=== PATIENT | female | born 1990 | race Caucasian/White ===

== ENCOUNTER 2017-03-05 11:02 | Emergency (ER) | payer BC, MEDICAID ==
[~2017-03-05] VITALS: Ht 162.6 cm; Wt 60.8 kg
[2017-03-05] MEDS ORDERED: ACETAMINOPHEN/CODEINE#3 (300/30mg) TAB PO ONE (12:00)
[2017-03-05 12:04] VITALS: BP 116/60
== END 2017-03-05 12:04 | disposition home or self-care (01) ==
LOC: ER 11:08
DX: K04.7 Periapical abscess without sinus (principal); R51 Headache; Z88.1 Allergy status to other antibiotic agents; Z88.8 Allergy status to other drugs, medicaments and biological substances

== ENCOUNTER → 2017-03-30 | Outpatient (CLI) | payer BC ==
[2017-03-30 11:46] LABS: Basophils # (auto) 0.1 uL; Eosinophils # (auto) 0.4 uL; Eosinophils % (auto) 5.6 % (0.0-7.0); Hematocrit 42.7 % (36.0-46.0); Hemoglobin 14.4 g/dL (12.2-16.2); Lymphocytes # (auto) 2.7 uL; Lymphocytes % (auto) 39.3 % (10.0-50.0); Mean Corpuscular Hemoglobin 29.3 pg (28.0-32.0); Mean Corpuscular Hgb Conc. 33.6 g/dL (32.0-36.0); Mean Corpuscular Volume 86.9 fL (80.0-100.0); Mean Platelet Volume 9.1 fL (7.4-10.4); Monocytes # (auto) 0.6 uL; Neutrophils % (auto) 44.1 % (37.0-80.0); Platelet Count (auto) 284 10^3/uL (140-450); Red Cell Distribution Width 13.4 % (11.6-16.0); White Blood Cell 6.8 10^3/uL (4.4-10.8)
== END | disposition home or self-care (01) ==
LOC: LAB 11:24
PROVIDERS: ATTEND Obstetrics & Gynecology
DX: N92.6 Irregular menstruation, unspecified (principal)
CPT/HCPCS: 36415; 84443; 85025

== ENCOUNTER 2017-04-14 16:06 | Emergency (ER) | payer BC, MEDICAID ==
[~2017-04-14] VITALS: Ht 162.6 cm; Wt 61.2 kg
[2017-04-14 16:40] VITALS: BP 115/66
== END 2017-04-14 21:01 | disposition left against medical advice (07) ==
LOC: ER 16:15
DX: T78.40XA Allergy, unspecified, initial encounter (principal); Z53.21 Procedure and treatment not carried out due to patient leaving prior to being seen by health care provider

== ENCOUNTER → 2017-04-27 | Outpatient (CLI) | payer BC, MEDICAID ==
[2017-04-28 09:01] LABS: Basophils # (auto) 0 uL; Basophils % (auto) 0.4 % (0.0-2.0); CONDITION Y; Eosinophils # (auto) 0.4 uL; Eosinophils % (auto) 3.5 % (0.0-7.0); Hematocrit 43.3 % (36.0-46.0); Hemoglobin 14.7 g/dL (12.2-16.2); Lymphocytes # (auto) 2.4 uL; Lymphocytes % (auto) 22.7 % (10.0-50.0); Mean Corpuscular Hemoglobin 29.7 pg (28.0-32.0); Mean Corpuscular Volume 87.3 fL (80.0-100.0); Mean Platelet Volume 9.7 fL (7.4-10.4); Monocytes # (auto) 0.6 uL; Monocytes % (auto) 5.9 % (0.0-12.0); Neutrophils # (auto) 7.1 uL; Neutrophils % (auto) 67.5 % (37.0-80.0); Platelet Count (auto) 287 10^3/uL (140-450); Red Cell Distribution Width 13.9 % (11.6-16.0); White Blood Cell 10.5 10^3/uL (4.4-10.8)
== END | disposition home or self-care (01) ==
LOC: LAB 15:52
PROVIDERS: ATTEND Internal Medicine Cardiovascular Disease
DX: D64.9 Anemia, unspecified (principal); B27.90 Infectious mononucleosis, unspecified without complication; R07.0 Pain in throat
CPT/HCPCS: 36415; 85025; 86308; 87070

== ENCOUNTER → 2017-08-27 | Outpatient (CLI) | payer BC, MEDICAID ==
[2017-08-27 09:42] LABS: Basophils # (auto) 0.1 uL; Basophils % (auto) 0.9 % (0.0-2.0); Eosinophils # (auto) 0.3 uL; Hematocrit 41.5 % (36.0-46.0); Lymphocytes # (auto) 2.7 uL; Lymphocytes % (auto) 42.5 % (10.0-50.0); Mean Corpuscular Hemoglobin 29.7 pg (28.0-32.0); Mean Corpuscular Hgb Conc. 33.7 g/dL (32.0-36.0); Mean Platelet Volume 8.9 fL (6.9-10.8); Monocytes # (auto) 0.4 uL; Monocytes % (auto) 5.9 % (0.0-12.0); Neutrophils % (auto) 46.7 % (37.0-80.0); Nucleated Red Blood Cells % 0.1 %; Platelet Count (auto) 337 10^3/uL (140-450); Red Cell Distribution Width 13.1 % (11.8-14.3); White Blood Cell 6.5 10^3/uL (4.4-10.8)
== END | disposition home or self-care (01) ==
LOC: LAB 09:15
PROVIDERS: ATTEND Internal Medicine Cardiovascular Disease
DX: R79.89 Other specified abnormal findings of blood chemistry (principal)
CPT/HCPCS: 36415; 85025

== ENCOUNTER → 2017-09-09 | Outpatient (CLI) | payer BC, MEDICAID ==
[2017-09-09 10:00] LABS: Cholesterol 174 mg/dL (< 200); HDL Cholesterol 55 mg/dL (40-59); LDL Cholesterol 110 mg/dL (< 100); Triglycerides 133 mg/dL (< 150)
== END | disposition home or self-care (01) ==
LOC: LAB 08:40
PROVIDERS: ATTEND Specialist
DX: N92.6 Irregular menstruation, unspecified (principal); R79.89 Other specified abnormal findings of blood chemistry
CPT/HCPCS: 36415; 80061; 83525; 84146; 84403

== ENCOUNTER 2017-10-15 08:04 | Day surgery (SDC) | payer BC, MEDICAID ==
[2017-10-12 12:37] LABS: Basophils # (auto) 0.1 uL; Basophils % (auto) 0.8 % (0.0-2.0); Eosinophils # (auto) 0.1 uL; Eosinophils % (auto) 2.1 % (0.0-7.0); Hematocrit 28.3 % (36.0-46.0); Hemoglobin 9.2 g/dL (12.2-16.2); Lymphocytes # (auto) 2.3 uL; Lymphocytes % (auto) 33.7 % (10.0-50.0); Mean Corpuscular Hemoglobin 27.1 pg (28.0-32.0); Mean Corpuscular Hgb Conc. 32.3 g/dL (32.0-36.0); Mean Corpuscular Volume 83.8 fL (80.0-100.0); Mean Platelet Volume 8.7 fL (6.9-10.8); Monocytes # (auto) 0.4 uL; Monocytes % (auto) 6.3 % (0.0-12.0); Neutrophils # (auto) 3.9 uL; Neutrophils % (auto) 57.1 % (37.0-80.0); Platelet Count (auto) 291 10^3/uL (140-450); White Blood Cell 6.8 10^3/uL (4.4-10.8)
[2017-10-12 12:43] LABS: Urine Bilirubin Negative (Negative); Urine Blood 3+ /uL (Negative); Urine Glucose Normal (Normal); Urine Ketone Negative (Negative); Urine Nitrite Negative (Negative); Urine Urobilinogen Normal (Negative); Urine pH 5.5 (5.0-8.0)
[2017-10-12 12:46] LABS: Urine Color Yellow (Yellow)
[2017-10-12 12:49] LABS: INR 0.96 (0.9-1.15); Partial Thromboplastin Time 25.5 sec (22.64-33.71); Prothrombin Time 10.5 sec (9.37-12.3)
[2017-10-12 12:59] LABS: Albumin 3.7 g/dL (3.4-5.0); BUN/Creatinine Ratio 23.1; Bilirubin, Total 0.3 mg/dL (0.2-1.0); Calcium 8.5 mg/dL (8.5-10.1); Potassium 3.9 mmol/L (3.5-5.1); Total Protein 7.4 g/dL (6.4-8.2)
[~2017-10-15] VITALS: Ht 162.6 cm; Wt 60.8 kg
[~2017-10-15 08:04] MED LIST: IBUP800T24 PO
[2017-10-15] MEDS ORDERED: PROPOFOL 10 MG/ML 20 ML IV ONE (10:28)
[2017-10-15] MEDS ORDERED: MIDAZOLAM HCL 1MG/1ML-2 ML VIAL ONE (10:28)
[2017-10-15] MEDS ORDERED: ceFAZolin 1GM/50ML 50 ML IV ONE (11:16)
[2017-10-15] MEDS ORDERED: ONDANSETRON HCL 4 MG/2 ML VIAL ONE (11:18)
[2017-10-15] MEDS ORDERED: METOCLOPRAMIDE HCL 5MG/ml INJ 2ml VIAL ONE (11:18)
[2017-10-15] MEDS ORDERED: KETOROLAC TROMETH 30 MG/ML 1ML VIAL ONE (11:18)
[2017-10-15] MEDS ORDERED: fentaNYL CITRATE 100 MCG/2 ML VL ONE (11:25)
[2017-10-15] MEDS ORDERED: LIDOCAINE HCL 2% TOP JELLY 5ML TOP ONE (11:28)
[2017-10-15] MEDS ORDERED: SILVER NITRATE-POTAS NITRA STICK TOP ONE (11:58)
[2017-10-15] MEDS ORDERED: ONDANSETRON HCL 4 MG/2 ML VIAL IV ONE (12:00)
[2017-10-15] MEDS ORDERED: MORPHINE SULF INJ 2 MG/ML SYRINGE 1ML IV PRN (12:00)
[2017-10-15] MEDS ORDERED: LACTATED RINGER'S 1,000 ML IV SCH (12:17)
[2017-10-15] MEDS ORDERED: ONDANSETRON HCL 4 MG/2 ML VIAL IV PRN (12:30)
[2017-10-15 13:22] VITALS: BP 108/60
== END 2017-10-15 13:31 | disposition home or self-care (01) ==
LOC: SUR 08:04
PROVIDERS: ATTEND Specialist
DX: N93.8 Other specified abnormal uterine and vaginal bleeding (principal); E28.2 Polycystic ovarian syndrome; D64.9 Anemia, unspecified; F32.9 Major depressive disorder, single episode, unspecified; G43.909 Migraine, unspecified, not intractable, without status migrainosus; Z88.0 Allergy status to penicillin; Z88.5 Allergy status to narcotic agent; Z88.1 Allergy status to other antibiotic agents; D69.6 Thrombocytopenia, unspecified; F41.9 Anxiety disorder, unspecified
CPT/HCPCS: 36415; 58558; 80053; 81003; 84702; 85025; 85610; 85730; 86850; 86900; 86901; J0690; J1885; J2250; J2405; J2704; J2765; J3010

== ENCOUNTER → 2018-05-09 | Outpatient (CLI) | payer BC, MEDICAID ==
[2018-05-09 09:12] LABS: Basophils # (auto) 0 uL; Basophils % (auto) 0.4 % (0.0-2.0); Mean Corpuscular Hgb Conc. 32.4 g/dL (32.0-36.0); Monocytes # (auto) 0.4 uL; Neutrophils # (auto) 3.7 uL; Platelet Count (auto) 286 10^3/uL (140-450)
[2018-05-09 09:15] LABS: Eosinophils # (auto) 0.1 uL; Eosinophils % (auto) 2.4 % (0.0-7.0); Hematocrit 41.6 % (36.0-46.0); Hemoglobin 13.5 g/dL (12.2-16.2); Lymphocytes # (auto) 1.9 uL; Lymphocytes % (auto) 30.5 % (10.0-50.0); Mean Corpuscular Hemoglobin 26.1 pg (28.0-32.0); Mean Corpuscular Volume 80.5 fL (80.0-100.0); Monocytes % (auto) 6.4 % (0.0-12.0); Neutrophils % (auto) 60.3 % (37.0-80.0); Red Blood Cells 5.16 10^6/uL (4.0-5.20); Red Cell Distribution Width 17.2 % (11.8-14.3); White Blood Cell 6.2 10^3/uL (4.4-10.8)
[2018-05-09 10:01] LABS: BUN/Creatinine Ratio 15.6; Bilirubin, Total 0.5 mg/dL (0.2-1.0); Potassium 3.9 mmol/L (3.5-5.1); Total Protein 7.9 g/dL (6.4-8.2)
== END | disposition home or self-care (01) ==
LOC: LAB 08:46
PROVIDERS: ATTEND Internal Medicine
DX: D64.9 Anemia, unspecified (principal); I10 Essential (primary) hypertension; E11.9 Type 2 diabetes mellitus without complications; F41.9 Anxiety disorder, unspecified; F32.9 Major depressive disorder, single episode, unspecified; E03.9 Hypothyroidism, unspecified
CPT/HCPCS: 36415; 80053; 82607; 83540; 85025

== ENCOUNTER 2018-12-08 10:50 | Emergency (ER) | payer BC, MEDICAID ==
[~2018-12-08] VITALS: Ht 162.6 cm; Wt 56.7 kg
[2018-12-08 12:12] VITALS: BP 126/65
== END 2018-12-08 12:42 | disposition home or self-care (01) ==
LOC: ER 10:50
DX: G43.909 Migraine, unspecified, not intractable, without status migrainosus (principal)
CPT/HCPCS: 70450

== ENCOUNTER → 2019-01-09 | Outpatient (CLI) | payer BC, MEDICAID ==
[2019-01-09 13:32] LABS: Cholesterol 189 mg/dL (< 200); HDL Cholesterol 50 mg/dL (40-59); LDL Cholesterol 110 mg/dL (< 100); Triglycerides 195 mg/dL (< 150)
[2019-01-09 14:33] LABS: Prolactin 10.86 ng/mL (2.8-29.2)
[2019-01-09 14:40] LABS: Follicle Stimulating Hormone 4.96 IU/L (SEE BELOW); Leuteinizing Hormone 21.4 IU/L
== END | disposition home or self-care (01) ==
LOC: LAB 12:18
PROVIDERS: ATTEND Specialist
DX: E28.2 Polycystic ovarian syndrome (principal)
CPT/HCPCS: 36415; 80061; 83001; 83002; 83036; 84146; 84403; 84443

== ENCOUNTER → 2019-06-26 | Outpatient (CLI) | payer BC, MEDICAID ==
[2019-06-26 16:00] LABS: Basophils # (auto) 0 uL; Basophils % (auto) 0.4 % (0.0-2.0); Eosinophils # (auto) 0.3 uL; Eosinophils % (auto) 5.2 % (0.0-7.0); Hematocrit 42.9 % (36.0-46.0); Hemoglobin 14.4 g/dL (12.2-16.2); Lymphocytes # (auto) 1.9 uL; Lymphocytes % (auto) 35.9 % (10.0-50.0); Mean Corpuscular Hemoglobin 30.2 pg (28.0-32.0); Mean Corpuscular Hgb Conc. 33.6 g/dL (32.0-36.0); Mean Corpuscular Volume 89.9 fL (80.0-100.0); Monocytes # (auto) 0.5 uL; Monocytes % (auto) 9.4 % (0.0-12.0); Neutrophils # (auto) 2.6 uL; Neutrophils % (auto) 49.1 % (37.0-80.0); Nucleated Red Blood Cells % 0.1 %; Platelet Count (auto) 254 10^3/uL (140-450); Red Blood Cells 4.78 10^6/uL (4.0-5.20); Red Cell Distribution Width 13.2 % (11.8-14.3); White Blood Cell 5.2 10^3/uL (4.4-10.8)
[2019-06-26 16:13] LABS: Albumin 3.6 g/dL (3.4-5.0); Calcium 8.4 mg/dL (8.5-10.1); Potassium 3.7 mmol/L (3.5-5.1)
[2019-06-26 16:17] LABS: BUN/Creatinine Ratio 14.8; Bilirubin, Total 0.5 mg/dL (0.2-1.0); Total Protein 7.5 g/dL (6.4-8.2)
== END | disposition home or self-care (01) ==
LOC: LAB 15:47
PROVIDERS: ATTEND Internal Medicine
DX: E03.9 Hypothyroidism, unspecified (principal); K21.9 Gastro-esophageal reflux disease without esophagitis
CPT/HCPCS: 36415; 80053; 84439; 84443; 85025

== ENCOUNTER 2020-05-17 15:52 | Emergency (ER) | payer BC, MEDICAID ==
[~2020-05-17] VITALS: Ht 162.6 cm; Wt 65.8 kg
[2020-05-17 16:38] VITALS: BP 148/71
[2020-05-17] MEDS ORDERED: KETOROLAC TROMETH 60MG/2ML VIAL IM ONE (16:45)
== END 2020-05-17 17:36 | disposition home or self-care (01) ==
LOC: ER 15:52
DX: G44.209 Tension-type headache, unspecified, not intractable (principal)
CPT/HCPCS: 70450; 81002; 81025; 96372; 99284; J1885

== ENCOUNTER → 2020-05-20 | Outpatient (CLI) | payer OTHER ==
[~2020-05-20] MED LIST changes: +ALBUAER3 IN; +ASCO500T11 PO; +CYA100I PO; +OMEP20TA PO; +ZINC220C8 PO
== END | disposition home or self-care (01) ==
LOC: LAB 15:15
PROVIDERS: ATTEND Physician Assistant
DX: Z03.818 Encounter for observation for suspected exposure to other biological agents ruled out (principal)
CPT/HCPCS: 87635

== ENCOUNTER 2020-06-01 13:32 | Emergency (ER) | payer MEDICAID, OTHER ==
[~2020-06-01] VITALS: Ht 162.6 cm; Wt 65.8 kg
[~2020-06-01 13:32] MED LIST changes: -ALBUAER3 IN; -ASCO500T11 PO; -CYA100I PO; -OMEP20TA PO; -ZINC220C8 PO
[2020-06-01 16:05] VITALS: BP 145/77
== END 2020-06-01 16:08 | disposition home or self-care (01) ==
LOC: EEVIPCON 13:32 → ER 13:32
DX: U07.1 COVID-19 (principal); J06.9 Acute upper respiratory infection, unspecified
CPT/HCPCS: 71045; 99284; U0003

== ENCOUNTER 2020-06-20 14:24 | Inpatient (IN) | payer MEDICAID ==
[~2020-06-20] VITALS: Ht 162.6 cm; Wt 66.1 kg
[2020-06-20] MEDS ORDERED: methylPREDNISolone SOD SUCC 125 MG/2 ML VL IV ONE (14:30)
[2020-06-20] MEDS ORDERED: AZITHROMYCIN 500MG/ 250ML 250 ML IV ONE (14:45)
[2020-06-20] MEDS ORDERED: SODIUM CHLORIDE 0.9% 1,000 ML IV SCH (15:25)
[2020-06-20] MEDS ORDERED: ACETAMINOPHEN 500 MG TAB PO PRN (15:30)
[2020-06-20] MEDS ORDERED: NITROGLYCERIN 0.4 MG SL TAB SL PRN (15:30)
[2020-06-20] MEDS ORDERED: MORPHINE SULF INJ 2 MG/ML SYRINGE 1ML IV PRN (15:30)
[2020-06-20 15:57] LABS: Basophils # (auto) 0 10 ^3/uL (0-0.2); Basophils % (auto) 0.5 % (0.0-2.0); Eosinophils # (auto) 0.2 10 ^3/uL (0-0.8); Eosinophils % (auto) 2.7 % (0.0-7.0); Hemoglobin 14.8 g/dL (12.2-16.2); Lymphocytes # (auto) 2.1 10 ^3/uL (0.4-5.4); Lymphocytes % (auto) 29.3 % (10.0-50.0); Mean Corpuscular Hemoglobin 29.4 pg (28.0-32.0); Mean Corpuscular Hgb Conc. 32.9 g/dL (32.0-36.0); Mean Corpuscular Volume 89.2 fL (80.0-100.0); Monocytes # (auto) 0.6 10 ^3/uL (0-1.3); Monocytes % (auto) 8.3 % (0.0-12.0); Neutrophils # (auto) 4.3 10 ^3/uL (1.6-8.6); Neutrophils % (auto) 59.2 % (37.0-80.0); Platelet Count (auto) 288 10^3/uL (140-450); Red Blood Cells 5.04 10^6/uL (4.0-5.20); Red Cell Distribution Width 12.7 % (11.8-14.3); White Blood Cell 7.2 10^3/uL (4.4-10.8)
[2020-06-20 16:13] LABS: Albumin 3.9 g/dL (3.4-5.0); Calcium 8.9 mg/dL (8.5-10.1); Potassium 3.7 mmol/L (3.5-5.1)
[2020-06-20 16:17] LABS: BUN/Creatinine Ratio 12.9; Bilirubin, Total 0.4 mg/dL (0.2-1.0); CRP High Sensitivity 0.3 mg/dL (< 0.3); Total Protein 7.6 g/dL (6.4-8.2)
[2020-06-20 17:00] VITALS: BP 122/76
[2020-06-20] MEDS ORDERED: ASCO500T11 PO (18:22)
[2020-06-20] MEDS ORDERED: CYA100I PO (18:22)
[2020-06-20] MEDS ORDERED: ZINC220C8 PO (18:23)
[2020-06-20 20:46] VITALS: BP 122/76
--- NOTE | 2020-06-20 20:52 | NUR ---
In House Covid-19 Swab In house covid-19 swab collected and walked to lab by charge nurse Ashlee.
[2020-06-20] MEDS: DOXYCYCLINE 100 MG TAB/CAP PO SCH (21:10)
[2020-06-20] MEDS: BUDESONIDE (INHALATION) 180 MCG IH IN SCH (21:55)
[2020-06-20] MEDS: ALBUTEROL SULF HFA 90MCG INH 200DOSE IN SCH (21:56)
[2020-06-20 22:00] VITALS: BP 121/69
[2020-06-20] MEDS ORDERED: ALBUTEROL SULF HFA 90MCG INH 200DOSE IN SCH (22:00)
--- NOTE | 2020-06-21 01:00 | NUR ---
Covid Test Result Notified by [employer]er Elda that patient's covid-19 test resulted negative.
--- NOTE | 2020-06-21 01:15 | NUR ---
Report Given Report given to Rocael BAUER.
--- NOTE | 2020-06-21 01:30 | NUR ---
Patient Transferred from [facility]- Unit Patient transferred to room 209 via wheelchair with all personal belongings accompanied by Rocael BAUER. No sign/symptoms of distress noted upon departure. Patient care endorsed to Rocael BAUER.
[2020-06-21 01:40] VITALS: BP 120/64
--- NOTE | 2020-06-21 01:40 | NUR ---
Patient transferred to room 209. Patient taken from COVID Unit on [facility] to room 209 via wheelchair with belongings. No signs of distress or SOB noted. Bed is in lowest position and locked. Call light within reach. Board updated. Vitals: Temp: 09.0, HR: 94, RR: 18, O@ saturation: 97% on RA, BP: 120/84. Will continue to assess hourly and as needed.
--- NOTE | 2020-06-21 02:37 | NUR ---
Spoke to BRINDA Qureshi and relayed to him that patient is feeling very anxious about her current health situation and cannot sleep either. Order received: Temazepam 15 mg PO Once. Order repeated, verified, and placed.
[2020-06-21] MEDS ORDERED: TEMAZEPAM 15 MG CAP PO ONE (02:45)
[2020-06-21 05:00] VITALS: BP 103/63
[2020-06-21] MEDS: ALBUTEROL SULF HFA 90MCG INH 200DOSE IN SCH ×2 (05:50→15:57)
[2020-06-21 07:50] LABS: Basophils # (auto) 0 10 ^3/uL (0-0.2); Basophils % (auto) 0.1 % (0.0-2.0); Eosinophils # (auto) 0 10 ^3/uL (0-0.8); Hematocrit 45.8 % (36.0-46.0); Hemoglobin 15.2 g/dL (12.2-16.2); Lymphocytes # (auto) 1.1 10 ^3/uL (0.4-5.4); Mean Corpuscular Hemoglobin 29.5 pg (28.0-32.0); Mean Corpuscular Hgb Conc. 33.3 g/dL (32.0-36.0); Mean Corpuscular Volume 88.8 fL (80.0-100.0); Monocytes # (auto) 0.1 10 ^3/uL (0-1.3); Monocytes % (auto) 1.2 % (0.0-12.0); Neutrophils # (auto) 7.7 10 ^3/uL (1.6-8.6); Neutrophils % (auto) 86.7 % (37.0-80.0); Platelet Count (auto) 305 10^3/uL (140-450); Red Blood Cells 5.16 10^6/uL (4.0-5.20); Red Cell Distribution Width 12.9 % (11.8-14.3); White Blood Cell 8.8 10^3/uL (4.4-10.8)
[2020-06-21 08:11] LABS: Albumin 4.1 g/dL (3.4-5.0); Calcium 9.1 mg/dL (8.5-10.1); Potassium 4.1 mmol/L (3.5-5.1)
[2020-06-21 08:15] LABS: BUN/Creatinine Ratio 7.7; Bilirubin, Total 0.3 mg/dL (0.2-1.0); Total Protein 8.2 g/dL (6.4-8.2)
--- NOTE | 2020-06-21 08:15 | NUR ---
Respiratory note: Albuterol and Pulmicort MDI's were administered by RT at this time as ordered. HR 81, RR 20, SPO2 99% on room air. Unable to document on EMAR, due to Albuterol MDI was documented NON-ADMINISTERED on EMAR by noc shift RN, unable to contact RN to undo documentation, RN already went home. Pt tolerated treatment well, no adverse reactions noted. Will continue as ordered.
[2020-06-21] MEDS: BUDESONIDE (INHALATION) 180 MCG IH IN SCH (08:17)
[2020-06-21] MEDS: DOXYCYCLINE 100 MG TAB/CAP PO SCH (08:58)
[2020-06-21 09:00] VITALS: BP 116/71
[2020-06-21] MEDS ORDERED: CHOLECALCIFEROL (VITD3) 2,000 UNIT CAP PO SCH (10:00)
[2020-06-21] MEDS ORDERED: ASCORBIC ACID 1,000 MG TAB PO SCH (10:00)
[2020-06-21] MEDS ORDERED: ZINC SULFATE 220mg CAP or TAB PO SCH (10:00)
[2020-06-21] MEDS ORDERED: ENOXAPARIN SOD 40 MG/0.4 ML SYRINGE SC SCH (10:00)
[2020-06-21 13:00] VITALS: BP 110/69
[2020-06-21] MEDS ORDERED: SODIUM CHLORIDE 0.9% 1,000 ML IV SCH (13:15)
[2020-06-21] MEDS ORDERED: ALBUAER3 IN (15:49)
[2020-06-21] MEDS ORDERED: OMEP20TA PO (15:52)
[2020-06-21] MEDS ORDERED: IOHEXOL 300 MG/ML 100ML BOTTLE IJ ONE (16:37)
[2020-06-21 16:42] VITALS: BP 110/69
[2020-06-21 17:00] VITALS: BP 115/59
--- NOTE | 2020-06-21 17:46 | NUR ---
Left a message to Dr. Regina Singleton regarding CTA resulted. Awaiting to call back.
--- NOTE | 2020-06-21 17:50 | NUR ---
MD aware of CTA result. Will DC patient.
--- NOTE | 2020-06-21 18:30 | NUR ---
Discharge instructions given as ordered. Encourage to follow up with FOLLOW UP WITH PCP DR. VÁZQUEZ IN 07/01/20 at 8.30 ADDRESS : [address] [place] [address] RD, [place], [place] # [phone] [phone] as instructed. All questions and concerns addressed. Patient verbalized understanding. Medication reconciliation form completed and copy given to patient. IV removed with catheter intact, pressure dressing applied. Patient taken to vehicle via wheelchair with all personal belongings, accompanied by staff and family member. No distress noted at time of departure.
== END 2020-06-21 18:40 | disposition home or self-care (01) | DRG 145 ==
LOC: EEVIPCON 14:24 → ER 14:24 → EAST 14:25 → CENTRAL 06-21 01:32
PROVIDERS: ATTEND Internal Medicine
DX: R06.02 Shortness of breath (principal); G43.909 Migraine, unspecified, not intractable, without status migrainosus; J98.9 Respiratory disorder, unspecified; K21.9 Gastro-esophageal reflux disease without esophagitis; N83.209 Unspecified ovarian cyst, unspecified side; Z88.5 Allergy status to narcotic agent; Z88.8 Allergy status to other drugs, medicaments and biological substances; Z82.49 Family history of ischemic heart disease and other diseases of the circulatory system; Z88.0 Allergy status to penicillin; Z83.3 Family history of diabetes mellitus; Z91.19 Patient's noncompliance with other medical treatment and regimen; Z20.828 Contact with and (suspected) exposure to other viral communicable diseases; B94.8 Sequelae of other specified infectious and parasitic diseases; R79.89 Other specified abnormal findings of blood chemistry
CPT/HCPCS: 36415; 71045; 71275; 80053; 82728; 83605; 83615; 83735; 84702; 85025; 85379; 86141; 87040; 87426; 93005; 93970; 94640; 96365; 96375; G0378

== ENCOUNTER → 2020-09-30 | Outpatient (CLI) | payer MEDICAID ==
[~2020-09-30] MED LIST changes: +ALBUAER3 IN; +CYA100I PO; -IBUP800T24 PO; +OMEP20TA PO
[2020-09-30 10:32] LABS: Basophils # (auto) 0 10 ^3/uL (0-0.2); Basophils % (auto) 0.7 % (0.0-2.0); Eosinophils # (auto) 0.3 10 ^3/uL (0-0.8); Eosinophils % (auto) 4.5 % (0.0-7.0); Hematocrit 43.1 % (36.0-46.0); Hemoglobin 14.4 g/dL (12.2-16.2); Lymphocytes # (auto) 2.2 10 ^3/uL (0.4-5.4); Lymphocytes % (auto) 31.8 % (10.0-50.0); Mean Corpuscular Hemoglobin 30.1 pg (28.0-32.0); Mean Corpuscular Hgb Conc. 33.4 g/dL (32.0-36.0); Mean Corpuscular Volume 90.1 fL (80.0-100.0); Monocytes # (auto) 0.5 10 ^3/uL (0-1.3); Monocytes % (auto) 6.9 % (0.0-12.0); Neutrophils # (auto) 3.8 10 ^3/uL (1.6-8.6); Neutrophils % (auto) 56.1 % (37.0-80.0); Platelet Count (auto) 274 10^3/uL (140-450); Red Blood Cells 4.79 10^6/uL (4.0-5.20); Red Cell Distribution Width 12.9 % (11.8-14.3); White Blood Cell 6.8 10^3/uL (4.4-10.8)
[2020-09-30 11:19] LABS: Albumin 3.9 g/dL (3.4-5.0); BUN/Creatinine Ratio 10.8; Bilirubin, Total 0.4 mg/dL (0.2-1.0); Calcium 9.4 mg/dL (8.5-10.1); Potassium 3.7 mmol/L (3.5-5.1); Total Protein 7.6 g/dL (6.4-8.2)
== END | disposition home or self-care (01) ==
LOC: LAB 09:56
PROVIDERS: ATTEND Physician Assistant
DX: E03.9 Hypothyroidism, unspecified (principal); E55.9 Vitamin D deficiency, unspecified; K58.9 Irritable bowel syndrome, unspecified; E28.2 Polycystic ovarian syndrome
CPT/HCPCS: 36415; 80053; 80061; 82306; 84443; 85025

== ENCOUNTER → 2020-10-31 | Outpatient (CLI) | payer MEDICAID ==
[2020-10-31 11:05] LABS: Leuteinizing Hormone 19.3 IU/L; Prolactin 5.77 ng/mL (2.8-29.2)
== END | disposition home or self-care (01) ==
LOC: LAB 09:52
PROVIDERS: ATTEND Specialist
DX: E28.2 Polycystic ovarian syndrome (principal)
CPT/HCPCS: 36415; 82626; 83001; 83002; 83036; 83525; 84146; 84403; 86304

== ENCOUNTER 2021-01-09 10:13 | Emergency (ER) | payer MEDICAID ==
[~2021-01-09] VITALS: Ht 162.6 cm; Wt 67.1 kg
[2021-01-09 10:46] VITALS: BP 133/77
[2021-01-09 10:47] LABS: Basophils # (auto) 0 10 ^3/uL (0-0.2); Basophils % (auto) 0.7 % (0.0-2.0); Eosinophils # (auto) 0.2 10 ^3/uL (0-0.8); Eosinophils % (auto) 4.1 % (0.0-7.0); Hematocrit 39.8 % (36.0-46.0); Hemoglobin 13.5 g/dL (12.2-16.2); Lymphocytes # (auto) 2.4 10 ^3/uL (0.4-5.4); Lymphocytes % (auto) 40.2 % (10.0-50.0); Mean Corpuscular Hgb Conc. 33.9 g/dL (32.0-36.0); Mean Corpuscular Volume 88.5 fL (80.0-100.0); Monocytes # (auto) 0.4 10 ^3/uL (0-1.3); Monocytes % (auto) 6.5 % (0.0-12.0); Neutrophils # (auto) 2.9 10 ^3/uL (1.6-8.6); Neutrophils % (auto) 48.5 % (37.0-80.0); Nucleated Red Blood Cells % 0.1 %; Platelet Count (auto) 320 10^3/uL (140-450); Red Cell Distribution Width 13.4 % (11.8-14.3)
[2021-01-09 11:03] LABS: Calcium 8.8 mg/dL (8.5-10.1); Potassium 3.8 mmol/L (3.5-5.1)
[2021-01-09] MEDS: SODIUM CHLORIDE 0.9% 1,000 ML IVB ONE (11:04)
[2021-01-09 11:09] LABS: BUN/Creatinine Ratio 13.4; Bilirubin, Total 0.5 mg/dL (0.2-1.0); Total Protein 7.9 g/dL (6.4-8.2)
[2021-01-09 12:21] LABS: Urine Bacteria NONE SEEN /hpf (None Seen); Urine Blood 3+ /uL (Negative); Urine Specific Gravity 1.002 (1.001-1.035); Urine WBC 2 /hpf (0 - 5)
[2021-01-09] MEDS: medroxyPROGESTERone ACETATE 5 MG TAB PO ONE (12:38)
[2021-01-09 14:01] LABS: Prolactin 16.11 ng/mL (2.8-29.2)
[2021-01-09 14:02] LABS: Follicle Stimulating Hormone 5.68 IU/L (SEE BELOW)
== END 2021-01-09 13:12 | disposition home or self-care (01) ==
LOC: EEVIPCON 10:13 → ER 10:13
DX: N93.8 Other specified abnormal uterine and vaginal bleeding (principal); Z88.0 Allergy status to penicillin; Z88.1 Allergy status to other antibiotic agents
CPT/HCPCS: 36415; 76830; 76856; 80053; 81001; 83001; 83002; 83036; 83525; 84146; 84443; 84702; 85025; 86850; 86900; 86901; 96360; 99284; J7030

== ENCOUNTER → 2021-02-14 | Day surgery (SDC) | payer MEDICAID ==
[2021-02-11 11:35] LABS: Basophils # (auto) 0 10 ^3/uL (0-0.2); Basophils % (auto) 0.6 % (0.0-2.0); Eosinophils # (auto) 0.3 10 ^3/uL (0-0.8); Eosinophils % (auto) 3.4 % (0.0-7.0); Hematocrit 39.4 % (36.0-46.0); Hemoglobin 13.2 g/dL (12.2-16.2); Lymphocytes # (auto) 2.7 10 ^3/uL (0.4-5.4); Lymphocytes % (auto) 34.9 % (10.0-50.0); Mean Corpuscular Hemoglobin 29.7 pg (28.0-32.0); Mean Corpuscular Hgb Conc. 33.6 g/dL (32.0-36.0); Mean Corpuscular Volume 88.6 fL (80.0-100.0); Monocytes # (auto) 0.4 10 ^3/uL (0-1.3); Monocytes % (auto) 5.8 % (0.0-12.0); Neutrophils # (auto) 4.2 10 ^3/uL (1.6-8.6); Neutrophils % (auto) 55.3 % (37.0-80.0); Nucleated Red Blood Cells % 0.1 %; Platelet Count (auto) 355 10^3/uL (140-450); Red Blood Cells 4.45 10^6/uL (4.0-5.20); Red Cell Distribution Width 12.9 % (11.8-14.3); White Blood Cell 7.7 10^3/uL (4.4-10.8)
[2021-02-11 11:48] LABS: Urine Bacteria NONE SEEN /hpf (None Seen); Urine Blood Negative /uL (Negative); Urine Specific Gravity 1.013 (1.001-1.035); Urine WBC 2 /hpf (0 - 5)
[2021-02-11 12:05] LABS: INR 0.97 (0.9-1.15); Partial Thromboplastin Time 28.3 sec (23.0-31.2)
[2021-02-11 12:31] LABS: Potassium 3.7 mmol/L (3.5-5.1)
[2021-02-11 12:40] LABS: Albumin 3.8 g/dL (3.4-5.0); BUN/Creatinine Ratio 8.1; Bilirubin, Total 0.3 mg/dL (0.2-1.0); Calcium 9.2 mg/dL (8.5-10.1); Total Protein 7.6 g/dL (6.4-8.2)
[~2021-02-14] VITALS: Ht 162.6 cm; Wt 67.1 kg
[~2021-02-14] MED LIST changes: -ALBUAER3 IN; +BUTA-280 PO; +CETI10CA PO; -CYA100I PO; +FLUT1SPR5; +GLYCOPYRROLATE 0.2 MG/ML 1ML VIAL ONE; +HYDROmorphone HCL 2 MG/ML VL IV PRN; +KETOROLAC TROMETH 30 MG/ML 1ML VIAL IV ONE; +LACTATED RINGER'S 1,000 ML IV SCH; +MEPERIDINE HCL (25 MG/ML) 1ML VIAL ONE; +METOCLOPRAMIDE HCL 5MG/ml INJ 2ml VIAL IV PRN; +MIDAZOLAM HCL 1MG/1ML-2 ML VIAL ONE; +MORPHINE SULFATE 4 MG/ML SYR/VIAL IV PRN; +NEOSTIGMINE 1 MG/ML INJ (10mg/10ML VIAL) ONE; -OMEP20TA PO; +ONDANSETRON HCL 4 MG/2 ML VIAL IV PRN; +ONDANSETRON HCL 4 MG/2 ML VIAL ONE; +PROPOFOL 10 MG/ML 20 ML IV ONE; +ROCURONIUM 10MG/ML 10ML VIAL IV ONE; +SODIUM CHLORIDE LOCK 10 ML ONE; +SUCCINYLCHOLINE 20mg/ml 100mg/5ml SYRINGE IV ONE; +diphenhdrAMINE HCL 50 MG/1 ML VL ONE; +fentaNYL CITRATE 100 MCG/2 ML VL ONE
[2021-02-14 13:55] VITALS: BP 128/77
== END | disposition home or self-care (01) ==
LOC: SUR 06:51
PROVIDERS: ATTEND Specialist
DX: E28.2 Polycystic ovarian syndrome (principal); N80.1 Endometriosis of ovary; N94.19 Other specified dyspareunia; Z88.0 Allergy status to penicillin; Z88.8 Allergy status to other drugs, medicaments and biological substances; Z98.51 Tubal ligation status; Z98.890 Other specified postprocedural states; Z79.899 Other long term (current) drug therapy; Z91.018 Allergy to other foods; Z86.16 Personal history of COVID-19; Z20.822 Contact with and (suspected) exposure to COVID-19
CPT/HCPCS: 36415; 58558; 80053; 81001; 84702; 85025; 85610; 85730; 86850; 86900; 86901; 88300; 88305; J0330; J1200; J2175; J2250; J2405; J2704; J3010; U0003